=== PATIENT | male | born 1960 | race Caucasian/White ===

== ENCOUNTER 2017-07-10 18:23 | Emergency (ER) | payer OTHER ==
[~2017-07-10] VITALS: Ht 177.8 cm; Wt 102.7 kg
[2017-07-10 18:36] VITALS: BP 112/56; PULSE 85; RESP 18; O2SAT 95
[2017-07-10 18:49] LABS: BASOPHILS % (AUTO) 0.7 % (0-3); EOSINOPHILS % (AUTO) 6.2 % (0-5); MONOCYTES % (AUTO) 10.5 % (4-12); Mean Corpuscular Volume 87.5 fL (81-100); NEUTROPHILS % (AUTO) 52.9 % (40-74); Platelet Count 248 bil/L (150-400)
[2017-07-10 19:09] LABS: TROPONIN T 0.01 ug/L (0.0-0.011)
--- NOTE | 2017-07-10 19:17 | ED.REPORT ---
HPI-General Illness Date of Service Jul 10, 2017 ED Provider: Jose Dior DO A 56 year old male on [place] with a history of alcohol abuse and cardiac arrest four weeks ago secondary to PE presents to the ED complaining of left arm pain. The pt woke at 06:00 this morning with left arm pain and tingling. These symptoms have persisted since that time. The pt has no other physical complaints, but was concerned that the symptoms may be related to another blood clot or cardiac arrest. His last drink was 45 days ago. Nursing Notes Stated Complaint: LEFT ARM PAIN Chief Complaint: General Complaint Nursing Notes Reviewed: Yes Allergies: Coded Allergies: No Known Allergies (Unverified , 07/10/17) General Time Seen by MD: 19:16 Chief Complaint Other (Left arm pain) Hx Obtained From: Patient Arrived By: Walk-in Sudden in Onset?: No Onset Occurred: 13 - 16 hours ago Symptom Duration: Since onset Recent Healthcare: Recent doctor visit, Recent hospitalization Similar Sx Previous: No Past Medical History Past Medical History cardiac arrest with 3 minutes of CPR secondary to PE Past Surgical History none reported Smoking History Unknown if Ever Smoker Social History lives in [place] quit drinking "45 days ago" as of 07/10/2017 Ambulatory Status Independent Review of Systems left arm numbness Full Review of Systems Respiratory: Denies: Non-productive cough, Shortness of breath Cardiovascular: Denies: Chest pain GI: Denies: Abdominal pain, Vomiting Musculoskeletal: Reports: Extremity pain, Denies: Back pain, Neck pain Skin: Denies Rash Complete sys rev & neg: except as marked. Physical Exam Vital Signs Vital Signs Date Time Temp Pulse Resp B/P Pulse Ox O2 Delivery O2 Flow Rate FiO2 07/10/17 22:30 71 16 132/64 94 Room Air 07/10/17 18:36 36.8 85 18 112/56 95 Room Air Initial VS: Reviewed General/Constitutional: Awake, Alert Head / Eyes: Atraumatic, Normocephalic, PERRL, EOMI ENT: Atraumatic, Airway patent, Mucous membranes moist Neck: Atraumatic, Supple, Full range of motion Respiratory / Chest: Breath sounds NL, Breath sounds = bilat, No respiratory distress chest wall tenderness from prior CPR Cardiovascular: Heart rate NL, Regular rhythm, Heart sounds NL Abdomen: Atraumatic, Soft, Non-tender Back: Atraumatic, Full range of motion Upper Extremities Upper Extremity / MS: Neurologic intact, Vascular intact reproducible pain with range of motion of the left arm Lower Extremity / Pelvis / MS: Atraumatic, Full range of motion Skin: Atraumatic, Color NL, No rash, Warm, Dry Neurologic: Oriented X3, Speech NL, No motor deficits, No sensory deficits Psychiatric: Affect NL, Mood NL Interpretation & Diagnostics Lab Results Interpretation Result Diagram: 07/10/17 1832 07/10/17 1832 Test 07/10/17 18:32 07/10/17 18:39 07/10/17 22:29 White Blood Count 5.4th/mm3 (3.8-10.1) Red Blood Count 4.40mil/mm3 (4.40-5.80) Hemoglobin 12.3g/dL (13.8-17.2) Hematocrit 38.5% (41.0-50.0) Mean Corpuscular Volume 87.5fL (81-100) Mean Corpuscular Hemoglobin 28.0pg (27.0-35.0) Mean Corpuscular Hemoglobin Concent 31.9% (32.0-37.0) Red Cell Distribution Width 16.1% (12.3-15.4) Platelet Count 248bil/L (150-400) Neutrophils (%) (Auto) 52.9% (40-74) Lymphocytes (%) (Auto) 29.7% (14-46) Monocytes (%) (Auto) 10.5% (4-12) Eosinophils (%) (Auto) 6.2% (0-5) Basophils (%) (Auto) 0.7% (0-3) Sodium Level 134mEq/L (134-144) Potassium Level 4.3mEq/L (3.5-5.2) Chloride Level 97mEq/L (97-108) Carbon Dioxide Level 23mmol/L (18-29) Blood Urea Nitrogen 14mg/dL (6-24) Creatinine 0.81mg/dL (0.76-1.27) Estimat Glomerular Filtration Rate 105mL/min (>59) Glucose Level 111mg/dL (60-99) Calcium Level 9.3mg/dL (8.5-10.1) Magnesium Level 1.8mg/dL (1.6-2.6) Total Bilirubin 0.3mg/dL (0.0-1.2) Aspartate Amino Transf (AST/SGOT) 15U/L (0-50) Alanine Aminotransferase (ALT/SGPT) 9U/L (0-44) Alkaline Phosphatase 126U/L (25-150) Pro-B-Type Natriuretic Peptide 101.7pg/mL (0-210) Total Protein 7.5g/dL (6.4-8.4) Albumin 4.5g/dL (3.4-5.0) Lipase 46U/L (13-60) Hold Purple Top Tube Received (Received) Hold Blue Top Tube Received (Received) Hold [place] Top Tube Received (Received) Troponin T 0.010ug/L (0.0-0.011) Pulse Oximetry Interpretation Pulse Oximetry Interpretation: 95% on room air Pulse Oximetry: Pulse Ox normal ECG Interpretation ECG Interpretation: normal sinus rhythm with a rate of 84 LBBB Time: 18:56 Interpreted by: ED physician X-Ray Chest Interpretation Chest Xray Interpretation: IMPRESSION: No acute cardiopulmonary disease. Dictated by: Eric Orona M.D. on 07/10/2017 at 20:32 Approved by: Eric Orona M.D. on 07/10/2017 at 20:32 Interpretation / Wet Read by: Interpret - Radiologist CT Head Interpretation IMPRESSION: No acute intracranial abnormalities. Dictated by: Eric Orona M.D. on 07/10/2017 at 20:32 Approved by: Eric Orona M.D. on 07/10/2017 at 20:34 Interpretation / Wet Read by: Interpret - Radiologist Re-Eval/Medical Decision Med Decision/Clinical Course The pain is reproducible with range of motion of left shoulder. The paresthesias seem to improve on abduction of the shoulder. Serial troponins were negative. EKG does not show any evidence of an OR. This gentleman suffered a cardiac arrest couple months ago secondary pulmonary emboli. He has been on hour course. His diagnostics are reassuring. He was observed and had the troponins. They were normal. Pain is treated with acetaminophen. He felt well enough to go back to [place] to continue his alcohol detox. I think this is most appropriate. Source of Hx: Old records Time of Eval: 23:39 Patient Status: Condition improved Re-Evaluation/Progress Note: Pt rechecked, who is comfortable. Radiology results, diagnosis and plan for discharge are discussed. The pt understands and agrees with the plan. All questions are addressed at this time. Counseled Regarding: Diagnosis, Lab results, Need for follow-up, When/why to return to ED Discharge & Departure Primary Impression: Left shoulder pain Chronicity: acute Qualified Code: M25.512 - Pain in left shoulder Additional Impression: Paresthesias Disposition: Home Discharge Condition All VS Reviewed: Yes Condition: Stable Patient Instructions: Shoulder Pain (ED) Additional Instructions: The EKG and serial cardiac enzymes are negative. Your chest x-ray is normal. Laboratory work is otherwise reassuring. An acute coronary syndrome or heart attack seems very unlikely. The pain is reproducible. Consider acetaminophen as directed for pain. Continue with your anticoagulants. Stay on the full regimen of medications that you are on. Call your primary care physician or PCN doctor to arrange a follow up appointment in the next 48 to 72 hours for further evaluation. Return if you have any problems or any new or worsening symptoms. Referrals: Shaniqua Delgado Attestation Portions of this note were transcribed by Almas Ford. I, Dr. Dior personally performed the history, physical exam and medical decision-making; I reviewed and confirmed the accuracy of the information in the transcribed note. copies to: Shaniqua Delgado Todd P DO Jul 10, 2017 19:17 ALMAS FORD Jul 10, 2017 19:52
[2017-07-10 19:21] LABS: Magnesium 1.8 mg/dL (1.6-2.6)
--- NOTE | 2017-07-10 20:34 | DRSVH ---
PROCEDURE: X-RAY CHEST ONE VIEW, PORTABLE ([id number]) INDICATIONS: 56 year-old male with left arm pain and tingling. TECHNIQUE: One view of the chest was acquired. COMPARISON: None. FINDINGS: Surgical changes and devices: None. Lungs and pleura: No pleural effusions or pneumothorax. Lungs are clear. Mediastinum: Mediastinal contours appear normal. Heart size is normal. Bones and chest wall: No suspicious bony lesions. Overlying soft tissues appear unremarkable. IMPRESSION: No acute cardiopulmonary disease. Dictated by: Eric Orona M.D. on 07/10/2017 at 20:32 Approved by: Eric Orona M.D. on 07/10/2017 at 20:32
--- NOTE | 2017-07-10 20:36 | DRSVH ---
PROCEDURE: CT BRAIN WITHOUT CONTRAST ([id number]) INDICATIONS: 56 year-old male with left arm numbness and recent cardiac arrest. TECHNIQUE: Noncontrast 4.5 mm thick angled axial sections acquired from the foramen magnum to the vertex, with c oronal reformats. COMPARISON: None. FINDINGS: Image quality: Excellent. CSF spaces: Basal cisterns are patent. No extra-axial fluid collections. Ventricles are normal in size and shape. Brain: No midline shift. No intracranial masses or hemorrhage. Craven-white matter interface is norm al. Skull and face: Calvarium and visualized facial bones are intact, without suspicious lesions. Sinuses: Visualized sinuses and mastoids are clear. IMPRESSION: No acute intracranial abnormalities. Dictated by: Eric Orona M.D. on 07/10/2017 at 20:32 Approved by: Eric Orona M.D. on 07/10/2017 at 20:34
[2017-07-10 22:30] VITALS: BP 132/64; PULSE 71; RESP 16; O2SAT 94
[2017-07-11 00:17] VITALS: BP 131/78; PULSE 77; RESP 15; O2SAT 94
== END 2017-07-11 | disposition home or self-care (01) ==
LOC: EDBD 18:23 → SED 18:23
DX: M25.512 Pain in left shoulder (principal); R20.2 Paresthesia of skin